=== PATIENT | male | born 1995 | race Asian ===

== ENCOUNTER 2019-01-15 22:31 | Emergency (ER) | payer OTHER ==
[~2019-01-15] VITALS: Ht 165.1 cm; Wt 74.8 kg
[2019-01-15 22:53] VITALS: Ht 165.1 cm; Wt 74.8 kg
[2019-01-16 01:45] VITALS: BP 135/77
== END 2019-01-16 01:45 | disposition home or self-care (01) ==
LOC: ED 22:31
DX: S81.812A Laceration without foreign body, left lower leg, initial encounter (principal); W22.01XA Walked into wall, initial encounter; Y93.39 Activity, other involving climbing, rappelling and jumping off; Y92.89 Other specified places as the place of occurrence of the external cause; Y99.8 Other external cause status
CPT/HCPCS: J2001